=== PATIENT | male | born 1990 | race Caucasian/White ===

== ENCOUNTER 2021-02-12 16:46 | Emergency (ER) | payer BC ==
[~2021-02-12] VITALS: Ht 170.2 cm; Wt 81.8 kg
[2021-02-12 16:57] VITALS: BP 150/83
[2021-02-12] MEDS ORDERED: NEOMY/BACITR/POLYMYXIN OINT PACKET. TP ONE (17:03)
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
[2021-02-12] MEDS ORDERED: AMOXICILLIN/K CLAV 875/125MG TABLET. PO ONE (17:15)
[2021-02-12] MEDS ORDERED: HYDROcodone/APAP 7.5/325MG 1 TAB TABLET PO ONE (17:15)
--- NOTE | 2021-02-12 17:21 | RAD ---
EXAM: PA, oblique and lateral views of the left hand DATE: 02/12/2021 5:09 PM INDICATION: Reason: dog bite / Spl. Instructions: / History: . COMPARISON: No Prior FINDINGS/ IMPRESSION: Foci of soft tissue gas in the soft tissues between the thumb and index finger and the dorsal aspect of the left hand. No definite retained radiopaque foreign body. No evidence of acute fracture or disl ocation. Electronically signed by: Douglas Dennis MD (02/12/2021 5:19 PM) MARY
[2021-02-12] MEDS ORDERED: AMOX1TAB61 PO (17:52)
== END 2021-02-12 18:02 | disposition home or self-care (01) ==
LOC: ER 16:46
DX: S61.432A Puncture wound without foreign body of left hand, initial encounter (principal); W54.0XXA Bitten by dog, initial encounter; Y93.89 Activity, other specified; Y92.89 Other specified places as the place of occurrence of the external cause; Y99.8 Other external cause status
CPT/HCPCS: 73130; 99283